=== PATIENT | male | born 1965 | race American Indian/Alaskan Native ===

== ENCOUNTER 2020-12-29 13:31 | Emergency (ER) | payer MEDICAID ==
[2020-12-29] MEDS ORDERED: SODIUM CHLORIDE 0.9% 1000 ML 1,000 ML IV ONE (13:54)
--- NOTE | 2020-12-29 14:23 | XRay Report ---
CHEST 1 VIEW 12/29/2020 1:14 PM INDICATION / CLINICAL INFORMATION: Chest pain. COMPARISON: None available. FINDINGS: SUPPORT DEVICES: Cardiac ICD projects over the heart. HEART / MEDIASTINUM: No significant abnormality. LUNGS / PLEURA: No significant pulmonary or pleural abnormality. No pneumothorax. ADDITIONAL FINDINGS: No significant additional findings. IMPRESSION: 1. No acute findings. Signer Name: Claude Ramirez MD Signed: 12/29/2020 2:19 PM Workstation Name: [id number]
[2020-12-29 15:03] LABS: Basophils % (Auto) 0.5 % (0.0-1.8); Eosinophils # (Auto) 0.1 K/mm3 (0.0-0.4); Eosinophils % (Auto) 2.5 % (0.0-4.3); Hematocrit 40.3 % (35.5-45.6); Hemoglobin 13.4 gm/dl (11.8-15.2); Lymphocytes # (Auto) 1.4 K/mm3 (1.2-5.4); Lymphocytes % (Auto) 28.8 % (13.4-35.0); Mean Corpuscular HGB Conc 33 % (32-34); Mean Corpuscular Volume 92 fl (84-94); Monocytes # (Auto) 0.6 K/mm3 (0.0-0.8); Monocytes % (Auto) 11.6 % (0.0-7.3); Platelet Count 161 K/mm3 (140-440); Red Blood Count 4.36 M/mm3 (3.65-5.03); Red Cell Distribution Width 14.9 % (13.2-15.2)
[2020-12-29 15:12] LABS: Blood Urea Nitrogen 15 mg/dL (9-20); Calcium 9.6 mg/dL (8.4-10.2); Hemolysis Index 17
[2020-12-29 15:14] LABS: Alanine Aminotransferase 67 units/L (7-56); Albumin 4.3 g/dL (3.9-5)
--- NOTE | 2020-12-29 15:15 | Emergency Department Report ---
HPI <SILVIA ZHANG - Last Filed: 12/29/20 20:29> - HPI HPI: 55-year-old male with history of hypertension, CHF, and bipolar disorder brought in by EMS with altered mental status and chest/upper abdominal pain. According to the EMS report, the patient arrived at [facility] today from [facility]. He was given his daily medications including Geodon and Neurontin and carbamazepine but the patient was complaining of chest and abdominal pain so 911 was called. When EMS arrived, they found the patient very lethargic and sleepy, although he is able to answer questions and is ANO x4. He is also with mumbling speech. He was found to have pinpoint pupils and was given 2 mg of IV Narcan without any response. When I speak to the patient, he is able to say that he has had 2 days of epigastric abdominal pain which has been constant. He says that he feels very sedated and that this started when he took his meds at [facility]. Given his extreme sedation and mumbling speech, further details of the HPI are unavailable at this time. <DIANE JEFFERY - Last Filed: 12/30/20 09:53> - General Chief Complaint: Abdominal Pain Time Seen by Provider: 12/29/20 13:46 ED Past Medical Hx <SILVIA ZHANG - Last Filed: 12/29/20 20:29> - Past Medical History Hx Hypertension: Yes Hx CVA: No (Patient denies) Hx Psychiatric Treatment: Yes - Surgical History Hx Pacemaker: Yes - Social History Smoking Status: Unknown if ever smoked <DIANE JEFFERY - Last Filed: 12/30/20 09:53> - Medications Home Medications: Home Medications Medication Instructions Recorded Confirmed Last Taken Type Aspirin [Vazalore] 81 mg PO DAILY 12/29/20 12/29/20 Unknown History AtorvaSTATin [Lipitor] 40 mg PO QHS 12/29/20 12/29/20 Unknown History Dapagliflozin Propanediol [Farxiga] 10 mg PO DAILY 12/29/20 12/29/20 Unknown History Famotidine [Pepcid] 40 mg PO QHS #10 tablet 12/29/20 Unknown Rx Furosemide [Lasix] 40 mg PO DAILY 12/29/20 12/29/20 Unknown History Gabapentin [Neurontin] 800 mg PO BID 12/29/20 12/29/20 Unknown History Lispro Insulin [HumaLOG] 5 unit SQ BID 12/29/20 12/29/20 Unknown History Nut.tx.gluc.intoler,Lac-Fr,Soy 237 ml PO DAILY 12/29/20 12/29/20 Unknown History [Glucerna] Ondansetron [Zofran Odt] 4 mg PO Q8HR #10 tab.rapdis 12/29/20 Unknown Rx Potassium Chloride [K-Dur] 10 meq PO QDAY 12/29/20 12/29/20 Unknown History Ziprasidone HCl [Geodon] 80 mg PO QDAY 12/29/20 12/29/20 Unknown History carBAMazepine [TEGretol] 250 mg PO Q12HR 12/29/20 12/29/20 Unknown History carvediloL [Coreg] 6.25 mg PO BID 12/29/20 12/29/20 Unknown History lisinopriL [Lisinopril] 10 mg PO DAILY 12/29/20 12/29/20 Unknown History ED Review of Systems ROS: Stated complaint: CP Other details as noted in HPI <SILVIA ZHANG - Last Filed: 12/29/20 20:29> ROS: Stated complaint: CP Other details as noted in HPI Comment: Unobtainable due to pts medical conditions <DIANE JEFFERY - Last Filed: 12/30/20 09:53> Physical Exam - Physical Exam Vital Signs: Vital Signs 12/29/20 12/29/20 12/29/20 13:34 13:45 14:00 Temperature Pulse Rate 72 Respiratory 17 Rate Blood Pressure 115/76 123/85 O2 Sat by Pulse 96 98 Oximetry 12/29/20 12/29/20 12/29/20 14:15 14:29 14:31 Temperature 98.6 F Pulse Rate 71 70 Respiratory 16 15 Rate Blood Pressure 108/69 108/73 O2 Sat by Pulse 96 97 Oximetry 12/29/20 12/29/20 12/29/20 14:45 15:01 15:15 Temperature Pulse Rate 74 73 72 Respiratory 15 15 17 Rate Blood Pressure 105/71 111/72 106/72 O2 Sat by Pulse 92 97 98 Oximetry 12/29/20 12/29/20 12/29/20 15:31 15:45 16:01 Temperature Pulse Rate 71 72 73 Respiratory 14 15 16 Rate Blood Pressure 111/72 105/69 106/72 O2 Sat by Pulse 96 95 69 L Oximetry 12/29/20 12/29/20 12/29/20 16:15 16:31 16:46 Temperature Pulse Rate 77 75 76 Respiratory 16 15 15 Rate Blood Pressure 126/87 117/78 130/92 O2 Sat by Pulse 96 98 Oximetry 12/29/20 12/29/20 12/29/20 17:01 17:15 17:31 Temperature Pulse Rate 78 73 74 Respiratory 16 14 16 Rate Blood Pressure O2 Sat by Pulse 96 95 98 Oximetry 12/29/20 12/29/20 12/29/20 17:45 18:01 18:15 Temperature Pulse Rate 73 73 73 Respiratory 15 14 14 Rate Blood Pressure 123/80 123/80 O2 Sat by Pulse 97 96 96 Oximetry 12/29/20 12/29/20 18:31 18:45 Temperature Pulse Rate 77 79 Respiratory 16 18 Rate Blood Pressure 123/80 123/80 O2 Sat by Pulse 95 97 Oximetry <SILVIA ZHANG - Last Filed: 12/29/20 20:29> - Physical Exam Vital Signs: Vital Signs 12/29/20 12/29/20 14:29 14:45 Temperature 98.6 F Respiratory 18 Rate O2 Sat by Pulse 100 Oximetry Physical Exam: GENERAL: Well developed and well nourished. Appears very sedated but is arousable to loud voice or touch. Frequently falling asleep. HEAD: Normocephalic. No obvious signs of trauma. ENT: Dry mucous membranes. EYES: Extraocular movements are intact. Pupils are pinpoint but bilaterally NECK: Supple. Full ROM is intact. Trachea is midline. LUNGS: Nonlabored breathing. Equal chest rise bilaterally. Clear to auscultation bilaterally. CARDIOVASCULAR: Regular rate and rhythm. No murmurs or rubs. VASCULAR: Cap refill < 2 seconds ABDOMEN: Abdomen is soft and nondistended. There is a well-healed scar noted to the right lower quadrant of the abdomen. There is tenderness noted in the epigastrium and the right lower quadrant of the abdomen without guarding or rebound. SKIN: Skin is warm and dry NEURO: Patient is very somnolent and appears sedated. Has mumbling speech but is able to answer questions appropriately. 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 No focal deficits. Normal motor and sensory exam throughout. MUSCULOSKELETAL: No obvious deformities. No significant tenderness. Normal ROM throughout. BACK/SPINE: No costovertebral angle tenderness. <DIANE JEFFERY - Last Filed: 12/30/20 09:53> ED Course Vital Signs 12/29/20 12/29/20 12/29/20 13:34 13:45 14:00 Temperature Pulse Rate 72 Respiratory 17 Rate Blood Pressure 115/76 123/85 O2 Sat by Pulse 96 98 Oximetry 12/29/20 12/29/20 12/29/20 14:15 14:29 14:31 Temperature 98.6 F Pulse Rate 71 70 Respiratory 16 15 Rate Blood Pressure 108/69 108/73 O2 Sat by Pulse 96 97 Oximetry 12/29/20 12/29/20 12/29/20 14:45 15:01 15:15 Temperature Pulse Rate 74 73 72 Respiratory 15 15 17 Rate Blood Pressure 105/71 111/72 106/72 O2 Sat by Pulse 92 97 98 Oximetry 12/29/20 12/29/20 12/29/20 15:31 15:45 16:01 Temperature Pulse Rate 71 72 73 Respiratory 14 15 16 Rate Blood Pressure 111/72 105/69 106/72 O2 Sat by Pulse 96 95 69 L Oximetry 12/29/20 12/29/20 12/29/20 16:15 16:31 16:46 Temperature Pulse Rate 77 75 76 Respiratory 16 15 15 Rate Blood Pressure 126/87 117/78 130/92 O2 Sat by Pulse 96 98 Oximetry 12/29/20 12/29/20 12/29/20 17:01 17:15 17:31 Temperature Pulse Rate 78 73 74 Respiratory 16 14 16 Rate Blood Pressure O2 Sat by Pulse 96 95 98 Oximetry 12/29/20 12/29/20 12/29/20 17:45 18:01 18:15 Temperature Pulse Rate 73 73 73 Respiratory 15 14 14 Rate Blood Pressure 123/80 123/80 O2 Sat by Pulse 97 96 96 Oximetry 12/29/20 12/29/20 18:31 18:45 Temperature Pulse Rate 77 79 Respiratory 16 18 Rate Blood Pressure 123/80 123/80 O2 Sat by Pulse 95 97 Oximetry <SILVIA ZHANG - Last Filed: 12/29/20 20:29> Vital Signs 12/29/20 12/29/20 14:29 14:45 Temperature 98.6 F Respiratory 18 Rate O2 Sat by Pulse 100 Oximetry <DIANE JEFFERY - Last Filed: 12/30/20 09:53> ED Medical Decision Making - Lab Data Result diagrams: 12/29/20 14:08 12/29/20 14:08 - Radiology Data CT ABDOMEN AND PELVIS WITH CONTRAST HISTORY: RLQ tenderness COMPARISON: None TECHNIQUE: Routine abdominal and pelvic CT exam performed following intravenous contrast administration. 100 cc Omnipaque [address] scans at this location are performed using CT dose reduction for ALARA by means of automated exposure control. FINDINGS: CT ABDOMEN: Lung Bases: There is a calcified granuloma in the left lower lobe. Liver: No significant abnormality. Biliary: No significant abnormality. Spleen: No significant abnormality. Unenlarged. Pancreas: No significant abnormality. Adrenals: No significant abnormality. Kidneys: No significant abnormality. Lymphatics: No lymphadenopathy. Vasculature: No significant abnormality. Bowel/Peritoneum: No significant abnormality. No free air. No free fluid. Normal appendix. CT PELVIC: : No significant abnormality. Lymphatics: No lymphadenopathy. Osseous Structures: No aggressive appearing osseous lesions. Additional Findings: None IMPRESSION: 1. No acute findings or findings to explain the patient's symptoms. The appendix is normal. Signer Name: Claude Ramirez MD Signed: 12/29/2020 5:23 PM Workstation Name: [id number] . CT head/brain wo con INDICATION / CLINICAL INFORMATION: 55 years Male; AMS. TECHNIQUE: Routine CT head without contrast. All CT scans at this location are performed using CT dose reduction for ALARA by means of automated exposure control. COMPARISON: None. FINDINGS: BRAIN / INTRACRANIAL CONTENTS: Old, branch MCA infarct suggested in the middle and inferior frontal gyral region on the right. Old, branch SCA infarct seen in the right cerebellar hemisphere, as well. It would be difficult to evaluate for small areas of brandyn-infarct ischemia without diffusion imaging by MRI. Small lacunar infarct is seen in the posterior lentiform nucleus on the right, which appears to be old. Otherwise, no acute hemorrhage, mass effect, midline shift, hydrocephalus, or acute, large territorial infarct. Mild, diffuse cerebral atrophy. There are mild to moderate areas of decreased attenuation in the white matter of the cerebral hemispheres. These are nonspecific findings and may be related to mi croangiopathy (hypertension, diabetes, atherosclerosis), given the patient's age. It might be difficult to evaluate for small areas of ischemia without diffusion imaging by MRI. CRANIOCERVICAL JUNCTION: No significant abnormality. ORBITS: No significant abnormality of visualized orbits. SINUSES / MASTOIDS: Visualized paranasal sinuses and mastoid air cells are essentially clear. ADDITIONAL FINDINGS: Atherosclerotic disease is seen in the anterior circulation. IMPRESSION: 1. No focal mass, hemorrhage, hydrocephalus, or acute, large territorial infarct. Follow-up with diffusion imaging by MRI, as clinically warranted. Signer Name: Librado Davidson MD, III Signed: 12/29/2020 5:24 PM Workstation Name: [id number] CHEST 1 VIEW 12/29/2020 1:14 PM INDICATION / CLINICAL INFORMATION: Chest pain. COMPARISON: None available. FINDINGS: SUPPORT DEVICES: Cardiac ICD projects over the heart. HEART / MEDIASTINUM: No significant abnormality. LUNGS / PLEURA: No significant pulmonary or pleural abnormality. No pneumothorax. ADDITIONAL FINDINGS: No significant additional findings. IMPRESSION: 1. No acute findings. Signer Name: Claude Ramirez MD Signed: 12/29/2020 2:19 PM Workstation Name: [id number] Transcribed By: DALJIT Dictated By: Claude Ramirez MD Electronically Authenticated By: Claude Ramirez MD Signed Date/Time: 12/29/20 1419 - Medical Decision Making After reviewing the patient's CT reports laboratory studies and urinalysis finding no obvious reason for the patient's abdominal pain. Patient may have mi ld gastritis versus peptic ulcer disease which is not apparent on imaging. Patient will be started on Pepcid and Zofran but he is cleared to go back to [place]. Patient was resting comfortably here in the emergency department his sedation likely secondary to medications that were given. <SILVIA ZHANG - Last Filed: 12/29/20 20:29> - Lab Data Result diagrams: 12/29/20 14:08 12/29/20 14:08 Lab Results 12/29/20 12/29/20 12/29/20 Range/Units 14:08 14:08 14:08 WBC 4.9 (4.5-11.0) K/mm3 RBC 4.36 (3.65-5.03) M/mm3 Hgb 13.4 (11.8-15.2) gm/dl Hct 40.3 (35.5-45.6) % MCV 92 (84-94) fl MCH 31 (28-32) pg MCHC 33 (32-34) % RDW 14.9 (13.2-15.2) % Plt Count 161 (140-440) K/mm3 Lymph % (Auto) 28.8 (13.4-35.0) % [place] % (Auto) 11.6 H (0.0-7.3) % Eos % (Auto) 2.5 (0.0-4.3) % Baso % (Auto) 0.5 (0.0-1.8) % Lymph # (Auto) 1.4 (1.2-5.4) K/mm3 [place] # (Auto) 0.6 (0.0-0.8) K/mm3 Eos # (Auto) 0.1 (0.0-0.4) K/mm3 Baso # (Auto) 0.0 (0.0-0.1) K/mm3 Seg Neutrophils % 56.6 (40.0-70.0) % Seg Neutrophils # 2.8 (1.8-7.7) K/mm3 Sodium 140 (137-145) mmol/L Potassium 4.3 (3.6-5.0) mmol/L Chloride 99.6 (98-107) mmol/L Carbon Dioxide 28 (22-30) mmol/L Anion Gap 17 mmol/L BUN 15 (9-20) mg/dL Creatinine 0.6 L (0.8-1.3) mg/dL Estimated GFR > 60 ml/min BUN/Creatinine Ratio 25 % Glucose 80 (75-100) mg/dL POC Glucose (70-105) mg/dL Calcium 9.6 (8.4-10.2) mg/dL Magnesium 2.10 (1.7-2.3) mg/dL Total Bilirubin 0.20 (0.1-1.2) mg/dL Direct Bilirubin < 0.2 (0-0.2) mg/dL Indirect Bilirubin 0.0 mg/dL AST 54 H (5-40) units/L ALT 67 H (7-56) units/L Alkaline Phosphatase 107 (35-129) units/L Ammonia (25-60) umol/L Troponin T < 0.010 (0.00-0.029) ng/mL NT-Pro-B Natriuret Pep 630.3 (0-900) pg/mL Total Protein 6.6 (6.3-8.2) g/dL Albumin 4.3 (3.9-5) g/dL Albumin/Globulin Ratio 1.9 % Lipase 33 (13-60) units/L Urine Color (Yellow) Urine Turbidity (Clear) Urine pH (5.0-7.0) Ur Specific Ada (1.003-1.030) Urine Protein (Negative) mg/dL Urine Glucose (UA) (Negative) mg/dL Urine Ketones (Negative) mg/dL Urine Blood (Negative) Urine Nitrite (Negative) Urine Bilirubin (Negative) Urine Urobilinogen (<2.0) mg/dL Ur Leukocyte Esterase (Negative) Urine WBC (Auto) (0.0-6.0) /HPF Urine RBC (Auto) (0.0-6.0) /HPF Salicylates (2.8-20.0) mg/dL Urine Opiates Screen Urine Methadone Screen Acetaminophen (10.0-30.0) ug/mL Ur Barbiturates Screen Ur Phencyclidine Scrn Ur Amphetamines Screen U Benzodiazepines Scrn Urine Cocaine Screen U Marijuana (THC) Screen Drugs of Abuse Note Plasma/Serum Alcohol (0-0.07) % 12/29/20 12/29/20 12/29/20 Range/Units 14:08 14:08 14:08 WBC (4.5-11.0) K/mm3 RBC (3.65-5.03) M/mm3 Hgb (11.8-15.2) gm/dl Hct (35.5-45.6) % MCV (84-94) fl MCH (28-32) pg MCHC (32-34) % RDW (13.2-15.2) % Plt Count (140-440) K/mm3 Lymph % (Auto) (13.4-35.0) % [place] % (Auto) (0.0-7.3) % Eos % (Auto) (0.0-4.3) % Baso % (Auto) (0.0-1.8) % Lymph # (Auto) (1.2-5.4) K/mm3 [place] # (Auto) (0.0-0.8) K/mm3 Eos # (Auto) (0.0-0.4) K/mm3 Baso # (Auto) (0.0-0.1) K/mm3 Seg Neutrophils % (40.0-70.0) % Seg Neutrophils # (1.8-7.7) K/mm3 Sodium (137-145) mmol/L Potassium (3.6-5.0) mmol/L Chloride (98-107) mmol/L Carbon Dioxide (22-30) mmol/L Anion Gap mmol/L BUN (9-20) mg/dL Creatinine (0.8-1.3) mg/dL Estimated GFR ml/min BUN/Creatinine Ratio % Glucose (75-100) mg/dL POC Glucose (70-105) mg/dL Calcium (8.4-10.2) mg/dL Magnesium (1.7-2.3) mg/dL Total Bilirubin (0.1-1.2) mg/dL Direct Bilirubin (0-0.2) mg/dL Indirect Bilirubin mg/dL AST (5-40) units/L ALT (7-56) units/L Alkaline Phosphatase (35-129) units/L Ammonia 40.0 (25-60) umol/L Troponin T (0.00-0.029) ng/mL NT-Pro-B Natriuret Pep (0-900) pg/mL Total Protein (6.3-8.2) g/dL Albumin (3.9-5) g/dL Albumin/Globulin Ratio % Lipase (13-60) units/L Urine Color (Yellow) Urine Turbidity (Clear) Urine pH (5.0-7.0) Ur Specific Ada (1.003-1.030) Urine Protein (Negative) mg/dL Urine Glucose (UA) (Negative) mg/dL Urine Ketones (Negative) mg/dL Urine Blood (Negative) Urine Nitrite (Negative) Urine Bilirubin (Negative) Urine Urobilinogen (<2.0) mg/dL Ur Leukocyte Esterase (Negative) Urine WBC (Auto) (0.0-6.0) /HPF Urine RBC (Auto) (0.0-6.0) /HPF Salicylates < 0.3 L (2.8-20.0) mg/dL Urine Opiates Screen Urine Methadone Screen Acetaminophen 5.0 L (10.0-30.0) ug/mL Ur Barbiturates Screen Ur Phencyclidine Scrn Ur Amphetamines Screen U Benzodiazepines Scrn Urine Cocaine Screen U Marijuana (THC) Screen Drugs of Abuse Note Plasma/Serum Alcohol (0-0.07) % 12/29/20 12/29/20 12/29/20 Range/Units 14:08 14:25 19:30 WBC (4.5-11.0) K/mm3 RBC (3.65-5.03) M/mm3 Hgb (11.8-15.2) gm/dl Hct (35.5-45.6) % MCV (84-94) fl MCH (28-32) pg MCHC (32-34) % RDW (13.2-15.2) % Plt Count (140-440) K/mm3 Lymph % (Auto) (13.4-35.0) % [place] % (Auto) (0.0-7.3) % Eos % (Auto) (0.0-4.3) % Baso % (Auto) (0.0-1.8) % Lymph # (Auto) (1.2-5.4) K/mm3 [place] # (Auto) (0.0-0.8) K/mm3 Eos # (Auto) (0.0-0.4) K/mm3 Baso # (Auto) (0.0-0.1) K/mm3 Seg Neutrophils % (40.0-70.0) % Seg Neutrophils # (1.8-7.7) K/mm3 Sodium (137-145) mmol/L Potassium (3.6-5.0) mmol/L Chloride (98-107) mmol/L Carbon Dioxide (22-30) mmol/L Anion Gap mmol/L BUN (9-20) mg/dL Creatinine (0.8-1.3) mg/dL Estimated GFR ml/min BUN/Creatinine Ratio % Glucose (75-100) mg/dL POC Glucose 97 (70-105) mg/dL Calcium (8.4-10.2) mg/dL Magnesium (1.7-2.3) mg/dL Total Bilirubin (0.1-1.2) mg/dL Direct Bilirubin (0-0.2) mg/dL Indirect Bilirubin mg/dL AST (5-40) units/L ALT (7-56) units/L Alkaline Phosphatase (35-129) units/L Ammonia (25-60) umol/L Troponin T (0.00-0.029) ng/mL NT-Pro-B Natriuret Pep (0-900) pg/mL Total Protein (6.3-8.2) g/dL Albumin (3.9-5) g/dL Albumin/Globulin Ratio % Lipase (13-60) units/L Urine Color (Yellow) Urine Turbidity (Clear) Urine pH (5.0-7.0) Ur Specific Ada (1.003-1.030) Urine Protein (Negative) mg/dL Urine Glucose (UA) (Negative) mg/dL Urine Ketones (Negative) mg/dL Urine Blood (Negative) Urine Nitrite (Negative) Urine Bilirubin (Negative) Urine Urobilinogen (<2.0) mg/dL Ur Leukocyte Esterase (Negative) Urine WBC (Auto) (0.0-6.0) /HPF Urine RBC (Auto) (0.0-6.0) /HPF Salicylates (2.8-20.0) mg/dL Urine Opiates Screen Negative Urine Methadone Screen Negative Acetaminophen (10.0-30.0) ug/mL Ur Barbiturates Screen Negative Ur Phencyclidine Scrn Negative Ur Amphetamines Screen Negative U Benzodiazepines Scrn Negative Urine Cocaine Screen Negative U Marijuana (THC) Screen Negative Drugs of Abuse Note Disclamer Plasma/Serum Alcohol < 0.01 (0-0.07) % 12/29/20 Range/Units 19:33 WBC (4.5-11.0) K/mm3 RBC (3.65-5.03) M/mm3 Hgb (11.8-15.2) gm/dl Hct (35.5-45.6) % MCV (84-94) fl MCH (28-32) pg MCHC (32-34) % RDW (13.2-15.2) % Plt Count (140-440) K/mm3 Lymph % (Auto) (13.4-35.0) % [place] % (Auto) (0.0-7.3) % Eos % (Auto) (0.0-4.3) % Baso % (Auto) (0.0-1.8) % Lymph # (Auto) (1.2-5.4) K/mm3 [place] # (Auto) (0.0-0.8) K/mm3 Eos # (Auto) (0.0-0.4) K/mm3 Baso # (Auto) (0.0-0.1) K/mm3 Seg Neutrophils % (40.0-70.0) % Seg Neutrophils # (1.8-7.7) K/mm3 Sodium (137-145) mmol/L Potassium (3.6-5.0) mmol/L Chloride (98-107) mmol/L Carbon Dioxide (22-30) mmol/L Anion Gap mmol/L BUN (9-20) mg/dL Creatinine (0.8-1.3) mg/dL Estimated GFR ml/min BUN/Creatinine Ratio % Glucose (75-100) mg/dL POC Glucose (70-105) mg/dL Calcium (8.4-10.2) mg/dL Magnesium (1.7-2.3) mg/dL Total Bilirubin (0.1-1.2) mg/dL Direct Bilirubin (0-0.2) mg/dL Indirect Bilirubin mg/dL AST (5-40) units/L ALT (7-56) units/L Alkaline Phosphatase (35-129) units/L Ammonia (25-60) umol/L Troponin T (0.00-0.029) ng/mL NT-Pro-B Natriuret Pep (0-900) pg/mL Total Protein (6.3-8.2) g/dL Albumin (3.9-5) g/dL Albumin/Globulin Ratio % Lipase (13-60) units/L Urine Color Straw (Yellow) Urine Turbidity Clear (Clear) Urine pH 7.0 (5.0-7.0) Ur Specific Ada 1.031 H (1.003-1.030) Urine Protein <15 mg/dl (Negative) mg/dL Urine Glucose (UA) >=500 (Negative) mg/dL Urine Ketones Neg (Negative) mg/dL Urine Blood Neg (Negative) Urine Nitrite Neg (Negative) Urine Bilirubin Neg (Negative) Urine Urobilinogen < 2.0 (<2.0) mg/dL Ur Leukocyte Esterase Neg (Negative) Urine WBC (Auto) < 1.0 (0.0-6.0) /HPF Urine RBC (Auto) < 1.0 (0.0-6.0) /HPF Salicylates (2.8-20.0) mg/dL Urine Opiates Screen Urine Methadone Screen Acetaminophen (10.0-30.0) ug/mL Ur Barbiturates Screen Ur Phencyclidine Scrn Ur Amphetamines Screen U Benzodiazepines Scrn Urine Cocaine Screen U Marijuana (THC) Screen Drugs of Abuse Note Plasma/Serum Alcohol (0-0.07) % - EKG Data -: EKG Interpreted by Me - EKG Data 12/30/20 09:51 Normal sinus rhythm. Left axis deviation. Left anterior fascicular block. No ectopy. No significant ST segment or T wave abnormality. - Medical Decision Making 55-year-old male with history of CHF, hypertension, and bipolar disorder brought in by EMS from [facility] for chief complaint of 2 days of epigastric abdominal pain. However, patient was found to be with altered mental status and severe somnolence. The patient is arousable to loud voice or touch and is able to answer questions appropriately although he has mumbling speech. He says that he feels very sedated and that this started when he took the meds given to him this morning at [place]. He is afebrile and with normal vital signs. Physical examination reveals pinpoint pupils bilaterally. However, patient was given 2 mg of IV Narcan in the field without significant response. Other than his somnolence and mumbling speech he has normal motor and sensory function throughout and no focal deficits noted. He does have dry mucous membranes as well as tenderness to palpation in the epigastrium and right lower quadrant of the abdomen. No CVA tenderness. I suspect that the patient's somnolence is related to overmedication given that it started just after he received the medications at [place]. Nonetheless, we will perform broad work-up with full set of labs, CT of the head to assess for evidence of intracranial bleeding versus other intracranial abnormality as well as chest x- ray and CT of the abdomen pelvis with IV contrast to evaluate for evidence of appendicitis versus pancreatitis versus cholecystitis versus intra-abdominal catastrophe versus other. We will give 1 L of IV fluids and continue to observe the patient closely. Labs have resulted and reveal no significant leukocytosis or anemia. Creatinine is within normal range and there are no significant electrolyte abnormalities. There is mildly elevated transaminases. Otherwise the remaining labs are within normal limits. Chest x-ray reveals no acute abnormalities. On reassessment at 4 PM, the patient's exam is essentially unchanged, although he appears slightly more awake at this time. CT of the head as well as CT of the abdomen pelvis with IV contrast are still pending. Patient signed out to Dr. Zhang at 4 PM. He will assume care of the patient. <JOSE DDIANE - Last Filed: 12/30/20 09:53> Critical care attestation.: If time is entered above; I have spent that time in minutes in the direct care of this critically ill patient, excluding procedure time. <SILVIA ZHANG - Last Filed: 12/29/20 20:29> Critical care attestation.: If time is entered above; I have spent that time in minutes in the direct care of this critically ill patient, excluding procedure time. <DIANE JEFFERY - Last Filed: 12/30/20 09:53> ED Disposition Is pt being admited?: No Does the pt Need Aspirin: No Time of Disposition: 20:31 <SILVIA ZHANG - Last Filed: 12/29/20 20:29> Is pt being admited?: No <JOSE DDIANE - Last Filed: 12/30/20 09:53> Clinical Impression: Acute gastritis without bleeding Qualifiers: Gastritis type: unspecified gastritis Qualified Code(s): K29.00 - Acute gastritis without bleeding Medication reaction Qualifiers: Encounter type: initial encounter Qualified Code(s): T50.905A - Adverse effect of unspecified drugs, medicaments and biological substances, initial encounter Disposition: 01 HOME / SELF CARE / HOMELESS Condition: Stable Instructions: Gastritis, Adult, [id number] Additional Instructions: Patient is medically cleared to return back to mental health facility. CT of the abdomen and head were both negative. Laboratory studies and urinalysis also within normal limits. Patient likely with some mild gastritis and prescriptions have been written. Sedation likely secondary to medications. Prescriptions: Famotidine [Pepcid] 40 mg PO QHS #10 tablet Ondansetron [Zofran Odt] 4 mg PO Q8HR #10 [email or web address] Referrals: PRIMARY CARE, [Primary Care Provider] - 3-5 Days
[2020-12-29 15:19] LABS: BUN/Creatinine Ratio 25; Bilirubin,Direct < 0.2 mg/dL (0-0.2)
--- NOTE | 2020-12-29 17:27 | Cat Scan Report ---
CT ABDOMEN AND PELVIS WITH CONTRAST HISTORY: RLQ tenderness COMPARISON: None TECHNIQUE: Routine abdominal and pelvic CT exam performed following intravenous contrast administrat ion. 100 cc Omnipaque [address] scans at this location are performed using CT dose re duction for ALARA by means of automated exposure control. FINDINGS: CT ABDOMEN: Lung Bases: There is a calcified granuloma in the left lower lobe. Liver: No significant abnormality. Biliary: No significant abnormality. Spleen: No significant abnormality. Unenlarged. Pancreas: No significant abnormality. Adrenals: No significant abnormality. Kidneys: No significant abnormality. Lymphatics: No lymphadenopathy. Vasculature: No significant abnormality. Bowel/Peritoneum: No significant abnormality. No free air. No free fluid. Normal appendix. CT PELVIC: : No significant abnormality. Lymphatics: No lymphadenopathy. Osseous Structures: No aggressive appearing osseous lesions. Additional Findings: None IMPRESSION: 1. No acute findings or findings to explain the patient's symptoms. The appendix is normal. Signer Name: Claude Ramirez MD Signed: 12/29/2020 5:23 PM Workstation Name: [id number]
--- NOTE | 2020-12-29 17:29 | Cat Scan Report ---
. CT head/brain wo con INDICATION / CLINICAL INFORMATION: 55 years Male; AMS. TECHNIQUE: Routine CT head without contrast. All CT scans at this location are performed using CT dos e reduction for ALARA by means of automated exposure control. COMPARISON: None. 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 Old, branch SCA infarct seen in the right cerebellar hemisphere, as well. I t would be difficult to evaluate for small areas of brandyn-infarct ischemia without diffusion imaging b y MRI. Small lacunar infarct is seen in the posterior lentiform nucleus on the right, which appears to be ol d. Otherwise, no acute hemorrhage, mass effect, midline shift, hydrocephalus, or acute, large territori al infarct. Mild, diffuse cerebral atrophy. There are mild to moderate areas of decreased attenuation in the white matter of the cerebral hemisph eres. These are nonspecific findings and may be related to microangiopathy (hypertension, diabetes, a therosclerosis), given the patient's age. It might be difficult to evaluate for small areas of ischem ia without diffusion imaging by MRI. CRANIOCERVICAL JUNCTION: No significant abnormality. ORBITS: No significant abnormality of visualized orbits. SINUSES / MASTOIDS: Visualized paranasal sinuses and mastoid air cells are essentially clear. ADDITIONAL FINDINGS: Atherosclerotic disease is seen in the anterior circulation. IMPRESSION: 1. No focal mass, hemorrhage, hydrocephalus, or acute, large territorial infarct. Follow-up with diff usion imaging by MRI, as clinically warranted. Signer Name: Librado Davidson MD, III Signed: 12/29/2020 5:24 PM Workstation Name: [id number]
[2020-12-29] MEDS ORDERED: SODIUM CHLORIDE 0.9% 1000 ML 1,000 ML IV SCH (18:00)
[2020-12-29 18:51] VITALS: BP 123/80
[2020-12-29 19:44] LABS: Bilirubin,Urine NEG (Negative); Blood,Urine NEG (Negative); Color,Urine Straw (Yellow); Protein,Urine <15 mg/dL mg/dL (Negative); Urobilinogen,Urine < 2.0 mg/dL (<2.0); WBC,Urine < 1.0 /HPF (0.0-6.0)
[2020-12-29 19:52] LABS: Amphetamine Screen,Urine Negative; Benzodiazepines Screen,Urine Negative; Cannabinoid Screen,Urine Negative; Cocaine Screen,Urine Negative; Methadone Screen,Urine Negative; Opiate Screen,Urine Negative
[2020-12-29 20:03] LABS: RBC,Urine < 1.0 /HPF (0.0-6.0)
--- NOTE | 2020-12-30 08:34 | Electrocardiograph Report ---
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
--- NOTE | 2021-01-11 10:15 | Electrocardiograph Report ---
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
== END 2020-12-29 23:50 | disposition home or self-care (01) ==
LOC: ED 13:31
DX: K29.00 Acute gastritis without bleeding (principal); T50.905A Adverse effect of unspecified drugs, medicaments and biological substances, initial encounter; I10 Essential (primary) hypertension; Z98.890 Other specified postprocedural states; Y92.89 Other specified places as the place of occurrence of the external cause
CPT/HCPCS: 36415; 70450; 71045; 74177; 80048; 80076; 80307; 81001; 82140; 82962; 83690; 83735; 83880; 84484; 85025; 93005; 96360; 99285; Q9967; 80320; G0480